=== PATIENT | male | born 1980 | race Caucasian/White ===

== ENCOUNTER 2017-01-11 10:50 | Inpatient (IN) | payer BC ==
[2017-01-11] VITALS (10 sets, daily range): BP systolic 108–122; BP diastolic 65–76
[~2017-01-11] VITALS: Ht 182.9 cm; Wt 102.1 kg
[2017-01-11] MEDS ORDERED: HYDR-2762 PO (14:01)
[2017-01-11] MEDS ORDERED: ONDA2VIA2 IV (14:01)
[2017-01-11] MEDS ORDERED: DICY10CA3 PO (14:01)
[2017-01-11] MEDS ORDERED: FENT1PAT91 TP (14:01)
[2017-01-11] MEDS ORDERED: NORT25CA PO (14:01)
[2017-01-11] MEDS ORDERED: FENT50VI IVP (14:01)
[2017-01-11] MEDS ORDERED: LISI1TAB3 PO (14:01)
[2017-01-11] MEDS ORDERED: METO50TA6 PO (14:01)
[2017-01-11] MEDS ORDERED: ONDA8TAB14 PO (14:01)
[2017-01-11] MEDS ORDERED: ACET500T68 PO ×2 (14:01→17:41)
[2017-01-11] MEDS ORDERED: OMEP10CA3 PO (14:01)
[2017-01-11] MEDS ORDERED: METO1TAB7 PO (14:01)
[2017-01-11] MEDS ORDERED: BUTA1TAB23 PO (14:01)
[2017-01-11] MEDS ORDERED: LIDOCAINE 2% 20 ML VIAL. ONE (15:33)
[2017-01-11] MEDS ORDERED: IOHEXOL 300 MG/ML 100ML VIAL. ONE (15:33)
--- NOTE | 2017-01-11 15:42 | PDOC ---
MODERATE SEDATION ASSESSMENT RISKS/ALTERNATIVES Risks/Alternatives Risks and alternatives of this type of sedation and procedure discussed with: RISK/ALTERNATIVES: Patient H & P ON CHART H & P H & P on chart and reviewed for co-morbid conditions and appropriate labs. H&P ON CHART: Yes STATUS PREG STATUS ASSESSED: N/A MEDS/ALLERGIES REVIEWED Meds/Allergies Reviewed Medications and Allergies including time and route of recently administered narcotics and sedatives. MEDS/ALLERGIES REVIEWED: Yes ASA RATING ASA RATING: II AIRWAY ASSESSMENT Airway Assessment Airway patency, oral function limitations, presence of caps, crowns, dentures, partials, and ability to extend neck assessed. AIRWAY ASSESSMENT: Yes MALLAMPATI SCORE MALLAMPATI SCORE: II PRE-SEDATION ASSESSMENT PRE-SEDATION ASSESSMENT: Yes HELADIO DUDLEY MD Jan 11, 2017 15:42
[2017-01-11] MEDS ORDERED: HEPARIN for IV BOLUS 10,000 UNIT/10 ML VIAL. ONE (15:49)
[2017-01-11] MEDS ORDERED: VERAPAMIL 5 MG/2 ML VIAL. ONE (15:49)
[2017-01-11] MEDS ORDERED: MIDAZOLAM HCL/PF 2 MG/2 ML VIAL. ONE ×2 (15:49→16:18)
[2017-01-11] MEDS ORDERED: NITROGLYCERIN 200 MCG/2 ML SYRINGE FOR CATH/VASC LAB. ONE (15:49)
[2017-01-11] MEDS ORDERED: fentaNYL PF VIAL 100 MCG/2 ML VIAL ONE (15:49)
[2017-01-11] MEDS ORDERED: fentaNYL PF VIAL 100 MCG/2 ML VIAL IV ONE (16:00)
[2017-01-11] MEDS ORDERED: IOHEXOL 300 MG/ML 100ML VIAL. IART ONE (16:00)
[2017-01-11] MEDS ORDERED: LIDOCAINE 2% 20 ML VIAL. IJ ONE (16:00)
[2017-01-11] MEDS ORDERED: NITROGLYCERIN 200 MCG/2 ML SYRINGE FOR CATH/VASC LAB. IART ONE (16:00)
[2017-01-11] MEDS ORDERED: VERAPAMIL 5 MG/2 ML VIAL. IART ONE (16:00)
[2017-01-11] MEDS ORDERED: HEPARIN for IV BOLUS 10,000 UNIT/10 ML VIAL. IART ONE (16:00)
[2017-01-11] MEDS ORDERED: MIDAZOLAM HCL/PF 2 MG/2 ML VIAL. IV ONE (16:00)
[2017-01-11] MEDS ORDERED: CONTRAST GIVEN MC PRN (16:15)
[2017-01-11] MEDS ORDERED: ACET325T9 PO (17:42)
[2017-01-11] MEDS ORDERED: BUTA-177 PO (17:42)
--- NOTE | 2017-01-12 11:56 | CARD ---
APPROVED REPORT Procedure(s) performed: MODERATE SEDATION: 33 MIN Left heart cath, coronary angiography, left ventriculogram. HISTORY The patient is a 36 year-old male with a history of : hypertension. INDICATION The indication(s) include : unstable angina . PROCEDURE NARRATIVE The patient was brought electively to the cardiac catheterization lab. A timeout was performed confi rming the patient's name, date of , procedure, and site of procedure. All necessary personnel w ere wearing the appropriate protective equipment and radiation monitor devices. After explaining the risks and benefits of the procedure and alternatives, informed consent was obtained. (See nursing no jorge for medications administered). The right wrist was sterilely prepped and draped in the usual fas hion. The right wrist was infiltrated with 1 mL of 2% lidocaine for subcutaneous anesthesia. A 6 Fr ench Terumo glide sheath was inserted into the right radial artery without difficulty. Right and lef t coronary angiography was performed using a 6Fr TIG 4.0 catheter. Left ventricular end diastolic pr essure was obtained with a pigtail catheter and pullback was performed after left ventriculography. All catheter exchanges and advancements were performed over a guidewire. At case completion the righ t radial sheath was removed and a Terumo radial band was applied with 13 ml of air. The patient tole rated the procedure well and there were no immediate complications. HEMODYNAMICS: LVEDP 10 mm Hg No gradient on LV to aortic pullback. LEFT VENTRICULOGRAM: EF 55% Anterobasal: Normal. Anterolateral: Normal Apical: Normal Diaphragmatic: Normal Posterobasal: Normal *No mitral regurgitation. CORONARY ANGIOGRAPHY: LM is a large caliber vessel with normal angiographic appearance. LAD is a large caliber vessel with normal angiographic appearance. Ramus is a moderate caliber vessel with normal angiographic appearance. D1 is a moderate caliber vessel with normal angiographic appearance. LCx is a moderate caliber non-dominant vessel with normal angiographic appearance. OM1 is a moderate caliber vessel with normal angiographic appearance. RCA is a large caliber dominant vessel with normal angiographic appearance. RPDA and RPL are moderate caliber vessels with normal angiographic appearance. Conclusion 1. Normal angiographic appearance of the coronary arteries. 2. Normal LV function. EF 55% Recommendations Agg[facility] Medical Therapy
--- NOTE | 2017-02-08 12:23 | DS ---
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 It lasted about up to 20 minutes or longer associated with shortness of breath, diaphoresis, nausea and vomiting. This apparently has been going on for almost a month now and apparently finally, he was suggested by his primary care physician to come to the Emergency Room where he was evaluated. His EKG showed that he was in sinus rhythm with nonspecific ST-T changes. He had 2 sets of cardiac enzymes that were normal and the third one was done at [facility]. He was evaluated by the chemical engineering teacher and a decision was made to transfer him to [facility] and basically, he underwent cardiac catheterization that showed no evidence of any significant obstructive coronary artery disease and he was discharged home to follow with his primary care physician. PHYSICAL EXAMINATION: On examining him on the day of discharge, he looked well and was clearly in no apparent respiratory distress. He was pale, but no jaundice, cyanosis, or thyromegaly. No jugular venous distention. No limb edema. His heart rate was 83, blood pressure was 109/65, temperature was 98.3, respiratory rate was 18 and oxygen saturation was 98%. The rest of clinical examination is unremarkable. LABORATORY DATA: The cardiac catheterization showed that he has normal angiographic appearance of the coronary arteries, normal left ventricular systolic function, ejection fraction 55%. DISCHARGE MEDICATIONS: The patient was discharged home to continue on all his home medications including dicyclomine 10 mg every 6 hours, hydrocodone/APAP 7.5/325 one tablet every 6 hours, lisinopril/hydrochlorothiazide 10/12.5 mg once a day, metoprolol tartrate 50 mg twice a day and nortriptyline 50 mg at bedtime, omeprazole 10 mg at bedtime. FINAL DISCHARGE DIAGNOSES: Chest pain, myocardial infarction ruled out, hypertension. KRISTINA LONG MD DR: HAILEY/francia JOB#: [id number] / [id number]
== END 2017-01-11 20:15 | disposition home or self-care (01) | DRG 287 ==
LOC: 1 WEST ICU 12:31
PROVIDERS: ADMIT Internal Medicine; ATTEND Internal Medicine
PROC: 4A023N7 Measurement of Cardiac Sampling and Pressure, Left Heart, Percutaneous Approach (ICD-10-PCS; principal; 2017-01-11)
PROC: B2111ZZ Fluoroscopy of Multiple Coronary Arteries using Low Osmolar Contrast (ICD-10-PCS; 2017-01-11)
PROC: B2151ZZ Fluoroscopy of Left Heart using Low Osmolar Contrast (ICD-10-PCS; 2017-01-11)
DX: I20.0 Unstable angina (principal); I10 Essential (primary) hypertension
CPT/HCPCS: 93458; 99152; 99153; C1769; C1892; J1644; J2250; J3010; J3490; Q9967; J2001